=== PATIENT | male | born 1975 | race Caucasian/White ===

== ENCOUNTER 2017-09-06 13:12 | Emergency (ER) | payer BC, OTHER ==
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
[2017-09-06 15:01] VITALS: BP 139/86
== END 2017-09-06 15:14 | disposition home or self-care (01) ==
LOC: CED 13:12
DX: D69.2 Other nonthrombocytopenic purpura (principal); Z87.891 Personal history of nicotine dependence
CPT/HCPCS: 80053-PO

== ENCOUNTER → 2017-11-07 | Outpatient (CLI) | payer BC | LOC: BMCIMAGING 15:11 | PROVIDERS: ATTEND Family Medicine | DX: R07.89 Other chest pain (principal) ==

== ENCOUNTER → 2017-12-30 | Outpatient (CLI) | payer BC ==
[~2017-12-30] MED LIST: IOPAMIDOL (ISOVUE-300) 100 ML BTL ONE
== END ==
LOC: CIMAGING 09:34
PROVIDERS: ATTEND Family Medicine
DX: R07.89 Other chest pain (principal)
CPT/HCPCS: Q9967